=== PATIENT | male | born 1960 | race Caucasian/White ===

== ENCOUNTER 2024-03-12 16:49 | Emergency (ER) | payer SELFPAY ==
[2024-03-12 16:50] VITALS: BP 160/100
[2024-03-12 16:55] VITALS: BMI 24.3
[2024-03-12] MEDS: BENADRYL 25 MG IV (17:08)
[2024-03-12] MEDS: ADRENALIN 0.299999999999999989 MG IM (17:08)
[2024-03-12] MEDS: NSS 1000 IV (17:08)
[2024-03-12] MEDS: PEPCID 20 MG IV (17:09)
[2024-03-12] MEDS: SOLU-MEDROL PF 125 MG IV (17:09)
[2024-03-12 17:15] LABS: % Basophils 0.5 % (0-2); % Eosinophils 1.7 % (0-6); % Immature Granulocytes 0.5 % (0-0.5); % Lymphocytes 32.8 % (20.5-51.1); % Monocytes 6.8 % (1.7-9.3); % Neutrophils 57.7 % (42.2-75.2); Absolute Eosinophils 0.1 10^3/uL (0-0.7); Absolute Lymphocytes 2.7 10^3/uL (1.2-3.4); Absolute Monocytes 0.6 10^3/uL (0.1-0.6); Absolute Neutrophils 4.8 10^3/uL (1.4-6.5); Hemoglobin 16.3 g/dL (13.0-18.0); Mean Corp Hgb Conc. 35.4 g/dL (33.0-37.0); Mean Corpuscular Volume 87.6 fL (80.0-94.0); Nucleated Red Blood Cells % 0 % (-); Platelet Count 248 10^3/uL (130-400); Red Blood Cell Count 5.25 10^6/uL (4.70-6.10); Red Cell Dist. Width 12.3 % (11.5-14.5); White Blood Cell Count 8.2 10^3/uL (4.8-10.8)
[2024-03-12 17:29] LABS: ALT (SGPT) 34 U/L (0-50); AST (SGOT) 45 U/L (17-59); Albumin 4.7 g/dl (3.5-5.0); Alkaline Phosphatase 127 U/L (38-126); Blood Urea Nitrogen 29 mg/dl (9-20); Calcium 9.9 mg/dl (8.4-10.2); Carbon Dioxide 23 mmol/L (22-30); Chloride 100 mmol/L (98-107); Estimated Creatinine Clearance 79 ml/min; Glucose 178 mg/dl (70-99); Potassium 3.9 mmol/L (3.5-5.1); Sodium 136 mmol/L (135-145); Total Bilirubin 0.9 mg/dl (0.2-1.3); Total Protein 7.4 g/dl (6.3-8.2); eGFR > 60.00
--- NOTE | 2024-03-12 17:49 | ED.GENMED ---
History of Present Illness
General
Chief Complaint: Allergic Reaction
Time Seen by Provider: 03/12/24 17:00
Travel History
Have you had any contact with someone who has COVID-19?: No
Do you have any symptoms of coronavirus? Fever > 100 degrees, chills, cough, shortness of breath, sore throat, loss of taste or smell, muscle aches, or headache?: No
Past History
Past History
ED Past Medical History: Negative IDDM
ED Past Surgical History: Orthopedic
Social History
Tobacco: Non-smoker
Alcohol: None
Drug: None
Personal:
Living: with family
Employment: Employed
Family History
Family History: Other (non contrib)
Course
Orders/Labs/Results
Orders:
Orders
03/12/24 17:00
Electrocardiogram (*1) Stat
Reason for Study: Other
Other Reason for Exam: Allergy
EKG- Treatment ONCE
0.9% Sodium Chloride 1000 ml [Nss] 1,000 ml IV BOLUS
Diphenhydramine [Benadryl] 25 mg IV NOW STA
EPINEPHrine PF [Adrenalin] 0.3 mg IM NOW STA
EPINEPHrine PF [Adrenalin] 1 mg .ROUTE .STK-MED ONE
Famotidine [Pepcid] 20 mg PO NOW STA
MethylPREDNISolone PF [Solu-Medrol Pf] 125 mg .ROUTE .STK-MED ONE
MethylPREDNISolone PF [Solu-Medrol Pf] 125 mg IV NOW STA
03/12/24 17:03
Famotidine [Pepcid] 20 mg .ROUTE .STK-MED ONE
03/12/24 17:07
CMP [Comprehensive Metabolic Panel] Urgent
Complete Blood Count/With Diff Urgent
03/12/24 17:09
Famotidine [Pepcid] 20 mg IV NOW STA
Abnormal Lab Results
03/12/24
17:07
BUN 29 H mg/dl
(9-20)
Glucose 178 H mg/dl
(70-99)
Alkaline Phosphatase 127 H U/L
(38-126)
03/12/24 17:07
03/12/24 17:07
Vital Signs
Initial and Last Documented VS:
Initial Vital Signs
Temp Pulse Resp BP Pulse Ox
97.7 F 110 18 160/100 95
03/12/24 16:50 03/12/24 16:50 03/12/24 16:50 03/12/24 16:50 03/12/24 16:50
Last Documented Vital Signs
Temp Pulse Resp BP Pulse Ox
98.1 F 87 18 147/104 94
03/12/24 17:55 03/12/24 17:55 03/12/24 17:55 03/12/24 17:55 03/12/24 17:55
ED Attending Note
-
Portions of this chart may have been created with voice recognition software.� Occasional wrong word or��sound alike� substitutions may have occurred due to the inherent limitations of voice recognition software.
Discharge Plan
Departure
Prescriptions:
No Action
No Current Medications
0
Referrals:
Devon Cantrell MD [Family Provider] -
Interventions
Interventions:
*Risk Screen - Suicide Last Done: 03/12/24 16:55
*General Assessment Last Done: 03/12/24 16:55
*Neglect/Abuse Screening Last Done: 03/12/24 16:55
ED- Fall Risk Assessment Last Done: 03/12/24 16:55
*ED COVID-19 Vaccine History Last Done: 03/12/24 16:55
ED- Cardiac Assessment Last Done: 03/12/24 16:55
ED- Pulmonary Assessment Last Done: 03/12/24 16:55
ED-Skin Assessment Last Done: 03/12/24 16:55
Discharge Date and Time
Print Language: [place]LAND[place]
[2024-03-12 17:55] VITALS: BP 147/104
[2024-03-12 18:00] VITALS: BP 117/64
[2024-03-12 18:58] VITALS: BP 117/72
--- NOTE | 2024-03-12 19:13 | ED.GENMED ---
History of Present Illness
<Yumiko Mckeon PA-C - Last Filed: 03/12/24 19:17>
General
Chief Complaint: Allergic Reaction
Source: patient
Exam Limitations: none
Time Seen by Provider: 03/12/24 17:00
Nursing documentation reviewed up to this point in time: agreed with
Travel History
Have you had any contact with someone who has COVID-19?: No
Do you have any symptoms of coronavirus? Fever > 100 degrees, chills, cough, shortness of breath, sore throat, loss of taste or smell, muscle aches, or headache?: No
History of Present Illness
History of Present Illness:
64-year-old male withno past medical history presents with diffuse redness, hives and itchiness that started about 1 hour ago while he was trimming bushes outside of his house. He denies that he was stung by any insect. He has no history of
allergies. He says he came inside and was moderately red in his face and chest and had hives on his back. He took 50 mg of Benadryl about 1/2-hour before arrival and says that he had no improvement. He started stat noticing some swelling of his
eyelids and lip and felt a little bit of difficulty swallowing which is what brought him in. He is very anxious. He has never had anything like this before. He denies any eating anything new or taking any medications. He was not using any
chemicals when he was outside.
Past History
<Yumiko Mckeon PA-C - Last Filed: 03/12/24 19:17>
Past History
ED Past Medical History: Negative IDDM
ED Past Surgical History: Orthopedic
Social History
Tobacco: Non-smoker
Alcohol: None
Drug: None
Personal:
Living: with family
Employment: Employed
Family History
Family History: Other (non contrib)
Review of Systems
<Yumiko Mckeon PA-C - Last Filed: 03/12/24 19:17>
Review of Systems
Allergies reviewed?: Yes
All Other Systems: Not applicable
Phy Exam
<Yumiko Mckeon PA-C - Last Filed: 03/12/24 19:17>
Physical Exam
Physical Exam:
GENERAL: Alert , anxious, shaking
EYE: pupils equal and reactive
NECK: Supple
ENT: mmm.
Eyelid edema and slight upper lip edema
Posterior pharynx is erythematous but not swollen, normal phonation, not drooling
CARDIAC: Tachycardic, no murmur
LUNGS: Clear breath sounds bilaterally, no acute respiratory distress, no wheezes/rales/rhonchi no shortness of breath
ABDOMEN: Soft, without focal tenderness, no r/g, no cvat, normal bowel sounds
NEUROLOGICAL: Alert and oriented, no focal neuro deficits
SKIN: Warm and dry, diffusely erythematous to his face chest abdomen and back, scattered urticaria on his legs
MUSCULOSKELETAL: No edema, well perfused. neg hudson's sign
PSYCH: Anxious
Course
<Yumiko Mckeon PA-C - Last Filed: 03/12/24 19:17>
Orders/Labs/Results
Orders:
Orders
03/12/24 17:00
Electrocardiogram (*1) Stat
Reason for Study: Other
Other Reason for Exam: Allergy
EKG- Treatment ONCE
0.9% Sodium Chloride 1000 ml [Nss] 1,000 ml IV BOLUS
Diphenhydramine [Benadryl] 25 mg IV NOW STA
EPINEPHrine PF [Adrenalin] 0.3 mg IM NOW STA
EPINEPHrine PF [Adrenalin] 1 mg .ROUTE .STK-MED ONE
Famotidine [Pepcid] 20 mg PO NOW STA
MethylPREDNISolone PF [Solu-Medrol Pf] 125 mg .ROUTE .STK-MED ONE
MethylPREDNISolone PF [Solu-Medrol Pf] 125 mg IV NOW STA
03/12/24 17:03
Famotidine [Pepcid] 20 mg .ROUTE .STK-MED ONE
03/12/24 17:07
CMP [Comprehensive Metabolic Panel] Urgent
Complete Blood Count/With Diff Urgent
03/12/24 17:09
Famotidine [Pepcid] 20 mg IV NOW STA
Abnormal Lab Results
03/12/24
17:07
BUN 29 H mg/dl
(9-20)
Glucose 178 H mg/dl
(70-99)
Alkaline Phosphatase 127 H U/L
(38-126)
03/12/24 17:07
03/12/24 17:07
Vital Signs
Initial and Last Documented VS:
Initial Vital Signs
Temp Pulse Resp BP Pulse Ox
97.7 F 110 18 160/100 95
03/12/24 16:50 03/12/24 16:50 03/12/24 16:50 03/12/24 16:50 03/12/24 16:50
Last Documented Vital Signs
Temp Pulse Resp BP Pulse Ox
98.1 F 89 18 117/72 97
03/12/24 17:55 03/12/24 19:00 03/12/24 19:00 03/12/24 18:58 03/12/24 19:00
<Kailey Lopez, DO - Last Filed: 03/12/24 20:44>
Orders/Labs/Results
Orders:
Orders
03/12/24 17:00
Electrocardiogram (*1) Stat
Reason for Study: Other
Other Reason for Exam: Allergy
EKG- Treatment ONCE
0.9% Sodium Chloride 1000 ml [Nss] 1,000 ml IV BOLUS
Diphenhydramine [Benadryl] 25 mg IV NOW STA
EPINEPHrine PF [Adrenalin] 0.3 mg IM NOW STA
EPINEPHrine PF [Adrenalin] 1 mg .ROUTE .STK-MED ONE
Famotidine [Pepcid] 20 mg PO NOW STA
MethylPREDNISolone PF [Solu-Medrol Pf] 125 mg .ROUTE .STK-MED ONE
MethylPREDNISolone PF [Solu-Medrol Pf] 125 mg IV NOW STA
03/12/24 17:03
Famotidine [Pepcid] 20 mg .ROUTE .STK-MED ONE
03/12/24 17:07
CMP [Comprehensive Metabolic Panel] Urgent
Complete Blood Count/With Diff Urgent
03/12/24 17:09
Famotidine [Pepcid] 20 mg IV NOW STA
Abnormal Lab Results
03/12/24
17:07
BUN 29 H mg/dl
(9-20)
Glucose 178 H mg/dl
(70-99)
Alkaline Phosphatase 127 H U/L
(38-126)
03/12/24 17:07
03/12/24 17:07
Vital Signs
Initial and Last Documented VS:
Initial Vital Signs
Temp Pulse Resp BP Pulse Ox
97.7 F 110 18 160/100 95
03/12/24 16:50 03/12/24 16:50 03/12/24 16:50 03/12/24 16:50 03/12/24 16:50
Last Documented Vital Signs
Temp Pulse Resp BP Pulse Ox
98.1 F 89 18 117/72 97
03/12/24 17:55 03/12/24 19:00 03/12/24 19:00 03/12/24 18:58 03/12/24 19:00
[place];Yumiko Mckeon PA-C - Last Filed: 03/12/24 19:17>
MDM/Problems Addressed
Differential Diagnosis Includes:
Anaphylaxis, allergic reaction
MDM/Problems Addressed:
64-year-old male with no history presents with diffuse erythema, urticaria and facial swelling after being outside today trimming bushes. He denies that he was stung by anything. He denies any history of anaphylaxis in the past. He has no medical
problems and is on no medications. He is quite anxious with tachycardia and is shaking
Diffuse marked erythema and some scattered urticaria,
No wheezing, normal phonation, moderate pharyngeal erythema and mild upper lip and upper eyelid edema bilaterally consistent with anaphylaxis. Patient was given a dose of IM epinephrine, IV Pepcid, Solu-Medrol, another extra dose of Benadryl and a
liter of fluid. He was reassessed at 1800 and had resolution of his redness. Facial swelling is also resolved. He feels much better. Tachycardia resolved.
I reassessed him at 1915 and he looks well and is requesting to go home. He was seen by the [facility] ED attending prior to administration of epi. She had agreed upon a 2 to 3-hour observation. Patient feels comfortable going home
Prednisone x 5 days, Benadryl, EpiPen
<Yumiko Mckeon PA-C - Last Filed: 03/12/24 19:17>
*Critical Care Note
Total Time (30-74mins, 75-104mins- exclusive of procedures): Not Applicable
<Kailey Lopez DO - Last Filed: 03/12/24 20:44>
*Critical Care Note
Total Time (30-74mins, 75-104mins- exclusive of procedures): 35
comment:
Critical care statement: A total of 35 minutes of critical care time was provided for this patient. This includes management of unstable vital signs, evaluation of the patient at bedside, reviewing the patient's pertinent medical records, treatment
of anaphylaxis with epinephrine and frequent reassessment. This time with separate from time utilized to perform the aforementioned documented procedures
ED Attending Note
<Yumiko Mckeon PA-C - Last Filed: 03/12/24 19:17>
-
Portions of this chart may have been created with voice recognition software.� Occasional wrong word or��sound alike� substitutions may have occurred due to the inherent limitations of voice recognition software.
<Kailey John, DO - Last Filed: 03/12/24 20:44>
ED Attending Note
Patient seen and examined by attending physician: Yes
I performed the substantive portion of visit, reviewed & personally made and approve the management plan that is documented in note by myself or [place].: Yes
I performed a history and physical exam of patient and discussed management with resident, I reviewed resident's note and agree with documented findings and plan of care.: Yes
ED Attending Note:
Patient seen and examined at bedside, presenting after trimming bushes with concern for severe allergic reaction, broke out into full body hives, reporting feeling of throat closure with dyspnea. Denies history of allergic reactions in the past.
Patient seen and evaluated by physician news assistant immediately upon arrival. Vital signs significant for tachycardia.
On exam, patient tremulous, anxious, full body hives with diffuse erythema, most pronounced of the face. Airways patent. No wheezing on lung exam. No GI symptoms. Given reported feeling of throat closure, as well as patient's appearance, concern
for anaphylaxis. For this reason plan for epinephrine, steroids, Benadryl, Pepcid. Plan for continued close observation for 2 to 4 hours to ensure no rebound reaction, as well as discharge with close outpatient follow-up and EpiPen prescription
Discharge Plan
Departure
Patient Disposition: Home (Routine Discharge)
Date of Disposition: 03/12/24
Time of Disposition: 19:09
Patient with high blood pressure during this ER visit?: Yes
Condition: Fair
Covid-19: Not Applicable
Discharge Problem:
Allergic reaction, Anaphylaxis
Instructions: Anaphylaxis - Discharge instructions
Prescriptions:
New
epinephrine [EpiPen] 0.3 mg/0.3 mL auto-injector
0.3 mg IM .STAT PRN (Reason: anaphylaxis) Qty: 1 1RF
prednisone 50 mg tablet
50 mg PO DAILY Qty: 5 0RF
Referrals:
Devon Cantrell MD [Family Provider] - Follow up in 2-3 days
Julia Oneal MD [Consulting Staff] - Follow up in 5-7 days (Latin Dance Instructor)
Activity Restrictions/Additional Instructions:
Were not sure what caused her anaphylactic reaction today. You were given a dose of epinephrine. Please watch her symptoms closely and carry an EpiPen with you. For the next 5 days once a day starting tomorrow take prednisone, this is a steroid
and will help your symptoms from recurring hopefully. Also for the next day or 2 you can take Benadryl 50 mg 2-3 times a day as needed for hives or redness or itchiness. Should you have any recurrence of symptoms immediately take Benadryl, if you
have your epinephrine pen with you you can use it and then call 911. If you do not have it with you please call 911 immediately. Return to the ER for any concerns
Follow-up with an order dispatcher chief as an outpatient
Interventions
Interventions:
*Risk Screen - Suicide Last Done: 03/12/24 16:55
*General Assessment Last Done: 03/12/24 16:55
*Neglect/Abuse Screening Last Done: 03/12/24 16:55
ED- Fall Risk Assessment Last Done: 03/12/24 16:55
*ED COVID-19 Vaccine History Last Done: 03/12/24 16:55
*Nursing Disposition Last Done: 03/12/24 19:13
ED- Cardiac Assessment Last Done: 03/12/24 16:55
ED- Pulmonary Assessment Last Done: 03/12/24 16:55
ED-Skin Assessment Last Done: 03/12/24 16:55
Discharge Date and Time
Discharge Date/Time: 03/12/24 19:21
Print Language: FRISIAN
== END 2024-03-12 19:21 | disposition home or self-care (01) ==
LOC: EMR 16:49
PROVIDERS: Physician Assistant; EMERGENCY PHYSICIAN Student in an Organized Health Care Education/Training Program; FAMILY PHYSICIAN Family Medicine
DX: T78.40XA Allergy, unspecified, initial encounter (principal); T78.2XXA Anaphylactic shock, unspecified, initial encounter; Y93.H2 Activity, gardening and landscaping
CPT/HCPCS: 99283; 96374; 96375; 96372; 96361; 80053; 85025; 93005